=== PATIENT | female | born 1985 | race Caucasian/White ===

== ENCOUNTER 2017-07-15 17:04 | Emergency (ER) | payer BC ==
[~2017-07-15] VITALS: Ht 165.1 cm; Wt 124.7 kg
[~2017-07-15 17:04] MED LIST: ACYCLOVIR 400400 M1; DOXYCYCLINE 10100 MG PO; HYDROCODONE-AP1 EAC6 PO; PRENATAL; UNICOMPLEX M TA1 TA1 PO
[2017-07-15 17:55] LABS: INFLUENZA A ANTIGEN None Detected (None Detect); INFLUENZA B ANTIGEN None Detected (None Detect)
[2017-07-15 18:12] LABS: CALCIUM 8.5 mg/dL (8.5-10.1); CREATININE 0.7 mg/dL (0.6-1.3); POTASSIUM 3.7 mmol/L (3.5-5.1)
[2017-07-15 18:33] VITALS: BP 129/70
--- NOTE | 2017-07-16 11:23 | EKG ---
[place] [address] ELECTROCARDIOGRAM REPORT Name: DENISE SANDHU Room: [facility]#: [id number] Admission: 07/15/17 Attend Phys: Discharge: 07/15/17 Date of : 85 Report #: [id number] THIS REPORT FOR: //name// [facility] ED Test Date: 2017-07-15 Test Time: 17:47:57 Pat Name: DENISE SANDHU Department: Room: Gender: F [employer]: LEOBARDO : 1985 Requested By: Connor Staley Order Number: [id number] MD: Eusebio Cole Measurements Intervals [place] Rate: 89 P: 21 AK: 146 QRS: 74 QRSD: 91 T: 11 QT: 363 QTc: 442 Interpretive Statements Sinus rhythm No previous ECG available for comparison Electronically Signed On 07-16-2017 11:23:44 [employer] by Eusebio Cole [email or web address] <ELECTRONICALLY SIGNED> By: Eusebio Cole MD, [facility] 07/16/17 [id number] Eusebio Cole MD, FACC /EPI
== END 2017-07-15 18:34 | disposition home or self-care (01) ==
LOC: M.ERS 17:04
PROVIDERS: Nurse Practitioner Family
DX: I10 Essential (primary) hypertension (principal); B34.9 Viral infection, unspecified; F17.200 Nicotine dependence, unspecified, uncomplicated; Z98.890 Other specified postprocedural states

== ENCOUNTER 2018-07-11 19:24 | Emergency (ER) | payer BC ==
[~2018-07-11] VITALS: Ht 165.1 cm; Wt 131.5 kg
[2018-07-11] MEDS ORDERED: NABUMETONE 750750 M1 PO (20:02)
[2018-07-11] MEDS ORDERED: AUGMENTIN 875-1 EACH PO (20:02)
[2018-07-11] MEDS ORDERED: NORCO 5-325 TA1 EACH PO (20:02)
[2018-07-11 20:35] VITALS: BP 142/101
== END 2018-07-11 20:35 | disposition home or self-care (01) ==
LOC: M.ERS 19:24
DX: H66.91 Otitis media, unspecified, right ear (principal); R59.1 Generalized enlarged lymph nodes; F17.210 Nicotine dependence, cigarettes, uncomplicated